=== PATIENT | male | born 1990 | race Caucasian/White ===

== ENCOUNTER 2017-06-13 22:40 | Emergency (ER) | payer OTHER ==
[~2017-06-13] VITALS: Ht 177.8 cm; Wt 63.5 kg
[~2017-06-13 22:40] MED LIST: AMOX500 PO; PSEU120ER PO; Prilosec Otc20 MG PO
[2017-06-13] MEDS ORDERED: Keflex500 MG PO (23:38)
[2017-06-13] MEDS ORDERED: Lotrisone Cream45 GM TOP (23:38)
[2017-12-26] MEDS ORDERED: Cyclobenzaprine5 MG PO (17:19)
[2017-12-26] MEDS ORDERED: CYCL10 PO (17:56)
== END 2017-06-13 23:45 | disposition home or self-care (01) ==
LOC: ER 22:40
DX: B35.3 Tinea pedis (principal); L73.9 Follicular disorder, unspecified; Z79.899 Other long term (current) drug therapy
CPT/HCPCS: 99283

== ENCOUNTER 2019-02-26 23:17 | Emergency (ER) | payer OTHER ==
[~2019-02-26] VITALS: Ht 177.8 cm; Wt 63.5 kg
[~2019-02-26 23:17] MED LIST changes: +CYCL10 PO; +Cyclobenzaprine5 MG PO; +Keflex500 MG PO; +Lotrisone Cream45 GM TOP
[2019-02-27] MEDS ORDERED: KETO10 PO (00:47)
== END 2019-02-27 01:02 | disposition home or self-care (01) ==
LOC: ER 23:17
DX: S20.212A Contusion of left front wall of thorax, initial encounter (principal); S00.01XA Abrasion of scalp, initial encounter; V47.5XXA Car driver injured in collision with fixed or stationary object in traffic accident, initial encounter; F17.290 Nicotine dependence, other tobacco product, uncomplicated
CPT/HCPCS: 70450; 71260; 72125; 74177; 99284-25; A9270-GY; Q9967

== ENCOUNTER 2019-12-12 18:44 | Emergency (ER) | payer OTHER ==
[~2019-12-12] VITALS: Ht 177.8 cm; Wt 65.8 kg
[~2019-12-12 18:44] MED LIST changes: +KETO10 PO
[2019-12-12] MEDS ORDERED: Keflex500 MG PO (21:52)
== END 2019-12-12 22:09 | disposition home or self-care (01) ==
LOC: ER 18:44
DX: L03.011 Cellulitis of right finger (principal); L02.511 Cutaneous abscess of right hand; M54.5 Low back pain
CPT/HCPCS: 10060; 72040; 99283-25; A9270-GY

== ENCOUNTER 2021-01-04 14:26 | Emergency (ER) | payer OTHER ==
[~2021-01-04] VITALS: Ht 177.8 cm; Wt 63.5 kg
== END 2021-01-04 16:19 | disposition home or self-care (01) ==
LOC: ER 14:26
DX: M70.21 Olecranon bursitis, right elbow (principal)
CPT/HCPCS: 73080; 99283-25

== ENCOUNTER 2022-06-27 13:31 | Emergency (ER) | payer SELFPAY ==
[~2022-06-27] VITALS: Ht 177.8 cm; Wt 61.2 kg
[2022-06-27] MEDS ORDERED: LEVFLO500 PO ×2 (16:27→16:35)
[2022-06-30 03:11] LABS: CHLAMYDIA TRACHOMATIS, NAA Negative (Negative)
== END 2022-06-27 17:23 | disposition home or self-care (01) ==
LOC: ER 13:31
PROVIDERS: Physician Assistant
DX: N45.1 Epididymitis (principal); F17.200 Nicotine dependence, unspecified, uncomplicated; N50.89 Other specified disorders of the male genital organs
CPT/HCPCS: 76870; 87491; 87591; 96372; 99284-25; A9270; J0696

== ENCOUNTER 2023-01-09 11:06 | Emergency (ER) | payer OTHER ==
[~2023-01-09] VITALS: Ht 177.8 cm; Wt 68.0 kg
[~2023-01-09 11:06] MED LIST changes: +LEVFLO500 PO
[2023-01-09 11:12] VITALS: BP 158/91
== END 2023-01-09 13:57 | disposition home or self-care (01) ==
LOC: ER 11:06
DX: M54.2 Cervicalgia (principal)
CPT/HCPCS: 72040; A9270; J1885